=== PATIENT | female | born 2000 | race Hispanic/Latino ===

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

== ENCOUNTER 2021-05-25 17:35 | Emergency (ER) | payer OTHER, SELFPAY ==
--- OUTSIDE RECORDS SUMMARY | 2021-05-25 17:39 | XMS REPORT | Continuity of Care Document ---
:2000 Author Organization [facility] t Address [address] [place] [address] Care Team Providers Name Role Phone Ellis JOHANSEN Attending Clinician Payers Payer Name Policy Type Policy Number Effective Date Expiration Date S pamela [employer]LEY [employer] [id number] 2017 [employer] 00:00:00 Problems This patient has no known problems. Allergies, Adverse Reactions, Alerts Allergy Allergy Status Severity Reaction(s) Onset Inactive Treating Comm ents Source Name Type Date Date Clinician CLINDAMY DRUG Active Unknown-Cmnt Un minna ROSALINDA INGREDI 8-14 ity of 00:00: [address] Clindamy Propensi Active Severe 0 [facility] rosalinda/Linc ty to 06-19 [place] omycin adverse 00:00: of reaction 00 Medicin s to e drug NO KNOWN Drug Active Univers ALLERGIE Class ity of [facility] Social History Social Habit Start Date Stop Date Quantity Comments Source Sex Assigned At [facility] Co llege of Medicine Alcohol intake 2019-08-05 2019-08-05 Ex-drinker [facility] Col lege 00:00:00 00:00:00 (finding) of Medicine Smoking Status Start Date Stop Date Source Never smoker [facility] o f Medicine Medications Ordered Filled Start Stop Current Ordering Indication Dosage Frequency Signature Comments Components Source Medication Medication Date Date Medication? Clinician (SIG) Name Name hydroxychlo 2020-0 2020- No 200mg Take 200 [facility] roquine 3-18 03-18 mg by [place] (PLAQUINIL) 18:23: 00:00 mouth of 200 MG 54 :00 daily. Medicin tablet e 2019-0 Yes Take by [facility] r Multivit-Mi 3-18 mouth. Colleg e n-Fe-FA 18:19: of ( 1 50 Medicin + IRON PO) e hydroxychlo 2020-0 Yes 200mg Take 1 Tab [facility] roquine 3-18 by mouth College (PLAQUINIL) 00:00: daily. of 200 MG 00 Medicin tablet e ASPIRIN LOW 2020-0 Yes TK 1 T PO B aylor DOSE 81 MG 2-05 D College tablet 00:00: of 00 Medicin e hydroxychlo 2020-0 Yes 200mg Take 200 B [facility] roquine 1-31 mg by [place] (PLAQUINIL) 21:26: mouth of 200 MG 04 daily. Medicin tablet e folic acid 2020-0 Yes 4mg Take 4 mg [facility] (FOLVITE) 1 - by mouth Rupal ege MG tablet 00:00: daily. of Medicin e folic acid 2020-0 Yes 4mg Take 4 mg [facility] (FOLVITE) 1 06-15 by mouth Rupal ege MG tablet 00:00: daily. of 00 Medicin e Vital Signs Vital Name Observation Time Observation Value Comments Source Systolic blood 2019-08-05 18:18:00 105 mm[Hg] [facility] Medicine Diastolic blood 2019-08-05 18:18:00 68 mm[Hg] [facility] Medicine Heart rate 2019-08-05 18:18:00 93 /min [facility] Body temperature 2019-08-05 18:18:00 36.89 Day [facility] Respiratory rate 2019-08-05 18:18:00 16 /min [facility] Body height 2019-08-05 18:18:00 152.4 cm [facility] Body weight 2019-08-05 18:18:00 66.044 kg [facility] BMI 2019-08-05 18:18:00 28.44 kg/m2 [facility] Oxygen saturation in 2019-08-05 18:18:00 98 /min [facility] Arterial blood by [facility] Pulse oximetry Systolic blood 2019-06-19 21:17:00 109 mm[Hg] [facility] pressure Medicine Diastolic blood 2019-06-19 21:17:00 73 mm[Hg] [facility] Medicine Heart rate 2019-06-19 21:17:00 77 /min [facility] Body temperature 2019-06-19 21:17:00 36.72 Day [facility] Respiratory rate 2019-06-19 21:17:00 16 /min [facility] Body height 2019-06-19 21:17:00 152.4 cm [facility] Body weight 2019-06-19 21:17:00 63.776 kg [facility] BMI 2019-06-19 21:17:00 27.46 kg/m2 [facility] Oxygen saturation in 2019-06-19 21:17:00 100 /min [facility] blood by [facility] Pulse oximetry Procedures This patient has no known procedures. Plan of Care Planned Activity Planned Date Details Comments Source Future Scheduled Test TETANUS SHOT (ADULT) [facility] [code = TETANUS SHOT Medicin e (ADULT)] Future Scheduled Test FLU VACCINE > 6 [facility] [code = FLU Medicine VACCINE > 6 MONTHS] Future Scheduled Test TETANUS SHOT (ADULT) [facility] [code = TETANUS SHOT Medicin e (ADULT)] Future Scheduled Test FLU VACCINE > 6 [facility] [code = FLU Medicine VACCINE > 6 MONTHS] Encounters Start End Encounter Admission Attending Care Care Encounter Source Date/Time Date/Time Type Type Clinicians Facility Department ID 2020-12-31 2020-12-31 Emergency X [facility] ERT [id number] [facility] 14:27:00 14:27:00 ity of [facility] 2019-08-05 2019-08-05 Office Ellis, BCJanuary [id number] [facility] 12:21:05 13:30:37 Visit Vandana AMBULATOR [id number] College Y [id number] of [id number] Medi rosalinda 370 e 2019-06-19 2019-06-19 Office Ellis, BCJanuary [id number] [facility] 15:08:38 16:00:04 Visit Vandana AMBULATOR [id number] College Y [id number] of [id number] Medi rosalinda 370 e Results This patient has no known results.
== END 2021-05-25 20:01 | disposition left against medical advice (07) ==
LOC: ER 17:35
DX: Z02.9 Encounter for administrative examinations, unspecified (principal)